=== PATIENT | female | born 1950 | race Caucasian/White ===

== ENCOUNTER → 2017-10-05 | Outpatient (CLI) | payer MEDICARE, OTHER ==
--- NOTE | 2017-10-05 15:50 | PULMONARY FUNCTION TEST ---
DATE OF SERVICE: 10/05/2017 THE VITAL CAPACITY IS SLIGHTLY DECREASED. THE EXPIRATORY FLOW RATES ARE MODERATELY DECREASED. THE FEV1/VC IS 66%, PREDICTED: 81% AFTER BRONCHODILATOR, EXPIRATORY FLOW RATES SHOW SIGNIFICANT IMPROVEMENT. IMPRESSION: THE INSPIRATORY LIMB OF THE F-V LOOP SHOWS POOR PATIENT TECHNIQUE. THE EXPIRATORY SPIROGRAM WAS ADEQUATE AND SHOWS A MODERATE OBSTRUCTIVE DEFECT. EXPIRATORY FLOW RATES IMPROVE SIGNIFICANTLY AFTER BRONCHODILATOR. CC: SALLIE MURPHY, DO > MTDD
== END ==
LOC: RT 07:03
DX: R06.00 Dyspnea, unspecified (principal)
CPT/HCPCS: 94060 ×2; A9270

== ENCOUNTER → 2019-02-21 | Outpatient (CLI) | payer MEDICARE, OTHER ==
[2019-02-21 18:58] LABS: POTASSIUM 3.8 mmol/L (3.6-5.0)
== END ==
LOC: OD 16:20
PROVIDERS: ATTEND Ophthalmology
DX: I10 Essential (primary) hypertension (principal)
CPT/HCPCS: 36415; 80051

== ENCOUNTER → 2020-04-16 | Outpatient (CLI) | payer MEDICARE, OTHER ==
--- NOTE | 2020-04-17 11:56 | Pulmonary Function Test ---
Pulmonary Function Test Date of Procedure:: 04/16/20 - 2019 received INDICATION:: Dyspnea Referring Provider: Dr. Stephon Gagnon Time Analysis Clerk: Yasmin Vega [employer] - Report Spirometry: Spirometry: pre-FVC: 2.29 L 74% post-FVC: 3.08 L 100% pre-FEV:1 1.77 L 73% post-FEV1: 2.19 L 90% pre-FEV1/FVC %:[77] post-FEV1/FVC%: 71 predicted: 81 [id number]%: 1.53 L 62% qtop-[id number]%: 1.38 L 56% Diffusion Capactity: DLCO: 15.4 63% DLCO/VA: 3.54 97% Impression: Mild obstructive ventilatory defect with good response to bronchodilator therapy. Mild decrease in diffusion capacity.
== END ==
LOC: RT 11:25
PROVIDERS: ATTEND Family Medicine
DX: R06.00 Dyspnea, unspecified (principal)
CPT/HCPCS: 94060; 94729